=== PATIENT | female | born 1935 | race Hispanic/Latino ===

== ENCOUNTER 2020-10-20 09:21 | Inpatient (IN) | payer MEDICARE ==
[~2020-10-20] VITALS: Ht 157.5 cm; Wt 64.9 kg
[2020-10-20 10:11] LABS: BASOPHILS % 0.4 % (0.0-1.0); EOSINOPHILS # (AUTO) 0.1 (0.0-0.4); EOSINOPHILS % 1.1 % (0.0-6.0); HEMATOCRIT 42.9 % (34.2-44.1); HEMOGLOBIN 14.5 g/dL (12.0-16.0); LYMPHOCYTES # (AUTO) 2.1 (1.0-3.2); LYMPHOCYTES % 18.5 % (18.0-39.1); MEAN CORPUSCULAR HEMOGLOBIN 30.6 pg (28-32); MEAN CORPUSCULAR HGB CONC 33.8 g/dL (31-35); MEAN CORPUSCULAR VOLUME 90.5 fL (81-99); MONOCYTES # (AUTO) 0.6 (0.2-0.8); MONOCYTES % 5.4 % (4.4-11.3); NEUTROPHILS # (AUTO) 8.5 (2.1-6.9); NEUTROPHILS % 74.2 % (38.7-80.0); PLATELET COUNT 341 x10e3/uL (140-360); RED BLOOD COUNT 4.74 x10e6/uL (3.6-5.1); RED CELL DISTRIBUTION WIDTH 13.6 % (11.7-14.4)
[2020-10-20 10:24] LABS: CLARITY,URINE CLOUDY (CLEAR); KETONES,URINE 2+ (NEGATIVE); LEUKOCYTE ESTERASE ,URINE LARGE (NEGATIVE); NITRITE,URINE POSITIVE (NEGATIVE); PROTEIN,URINE DIPSTICK >=300 (NEGATIVE)
[2020-10-20 10:25] LABS: COLOR,URINE RED (YELLOW)
[2020-10-20 10:28] LABS: BACTERIA,URINE MODERATE /HPF; EPITHELIAL CELLS,URINE RARE /LPF; RBC,URINE >50 /HPF (0-5)
[2020-10-20 10:45] LABS: ALANINE AMINOTRANSFERASE 18 IU/L (0-55); ALBUMIN 4.3 g/dL (3.5-5.0); ALBUMIN/GLOBULIN RATIO 1.1 (0.8-2.0); ALKALINE PHOSPHATASE 91 IU/L (40-150); ANION GAP 16.2 mmol/L (8-16); CALCIUM 9.2 mg/dL (8.4-10.2); CARBON DIOXIDE 23 mmol/L (22-29); CHLORIDE 105 mmol/L (98-107); GLUCOSE 95 mg/dL (74-118); POTASSIUM 4.2 mmol/L (3.5-5.1); SODIUM 140 mmol/L (136-145)
[2020-10-20] MEDS ORDERED: AMPICILLIN SOD/SULBACTAM 1.5GM 50 ML IV STA (10:51)
[2020-10-20 10:57] LABS: BLOOD UREA NITROGEN 12 mg/dL (7-26); BUN/CREATININE RATIO 16 (6-25); CREATININE, SERUM 0.77 mg/dL (0.57-1.11); EST GLOMERULAR FILTRATION RATE > 60 ML/MIN (60-)
[2020-10-20] MEDS ORDERED: SODIUM CHLORIDE 0.9% 250ML 250 ML ONE (11:28)
[2020-10-20] MEDS ORDERED: IOPAMIDOL 370 MG/ML 200 ML INFUS..BTL INJ ONE (11:28)
[2020-10-20] MEDS ORDERED: PIPERACILLIN/TAZO 4.5 GM 100 ML IV STA (12:44)
[2020-10-20 15:50] VITALS: BP 165/98
[2020-10-20 16:32] VITALS: BP 165/98
[2020-10-20] MEDS ORDERED: FAMOTIDINE40 MG PO (17:45)
[2020-10-20] MEDS ORDERED: ALENDRONATE SOD35 MG PO (17:45)
[2020-10-20] MEDS ORDERED: NIFEDIAC CC60 MG PO (17:45)
[2020-10-20 17:46] VITALS: BP 165/98
[2020-10-20 19:00] VITALS: BP 139/87
[2020-10-20] MEDS: MORPHINE SULFATE INJ 4 MG/ML INJ 1ML IV PRN ×2 (19:29→23:00)
[2020-10-20 20:50] VITALS: BP 139/87
[2020-10-21] VITALS (8 sets, daily range): BP systolic 141–180; BP diastolic 66–81
[2020-10-21] MEDS: MORPHINE SULFATE INJ 4 MG/ML INJ 1ML IV PRN ×2 (04:29→19:30)
[2020-10-21 05:19] LABS: BASOPHILS % 0.6 % (0.0-1.0); EOSINOPHILS # (AUTO) 0.1 (0.0-0.4); EOSINOPHILS % 2.7 % (0.0-6.0); HEMATOCRIT 38.5 % (34.2-44.1); HEMOGLOBIN 13.1 g/dL (12.0-16.0); LYMPHOCYTES # (AUTO) 1.6 (1.0-3.2); LYMPHOCYTES % 31.3 % (18.0-39.1); MEAN CORPUSCULAR HEMOGLOBIN 30.2 pg (28-32); MEAN CORPUSCULAR VOLUME 88.7 fL (81-99); MONOCYTES # (AUTO) 0.4 (0.2-0.8); MONOCYTES % 8.1 % (4.4-11.3); NEUTROPHILS % 57.1 % (38.7-80.0); PLATELET COUNT 297 x10e3/uL (140-360); RED BLOOD COUNT 4.34 x10e6/uL (3.6-5.1); RED CELL DISTRIBUTION WIDTH 13.7 % (11.7-14.4)
[2020-10-21 05:39] LABS: ANION GAP 11.3 mmol/L (8-16); BLOOD UREA NITROGEN 10 mg/dL (7-26); BUN/CREATININE RATIO 14 (6-25); CALCIUM 8.6 mg/dL (8.4-10.2); CARBON DIOXIDE 24 mmol/L (22-29); CHLORIDE 110 mmol/L (98-107); EST GLOMERULAR FILTRATION RATE > 60 ML/MIN (60-); GLUCOSE 97 mg/dL (74-118); POTASSIUM 3.3 mmol/L (3.5-5.1); SODIUM 142 mmol/L (136-145)
[2020-10-21] MEDS ORDERED: DOCUSATE SODIUM 100 MG CAP PO PRN (07:00)
[2020-10-21] MEDS ORDERED: ACETAMINOPHEN 325 MG TAB PO PRN (07:00)
[2020-10-21] MEDS ORDERED: ZOLPIDEM TARTRATE 5 MG TAB PO PRN (07:00)
[2020-10-21] MEDS ORDERED: ONDANSETRON HCL INJ 2MG/ML 2ML 2 MG/ML VIAL IV PRN (07:00)
[2020-10-21] MEDS ORDERED: POTASSIUM CHLORIDE 20 MEQ TAB CR PO ONE (08:15)
[2020-10-21] MEDS: PANTOPRAZOLE SOD 40 MG TABEC PO SCH (10:38)
[2020-10-21] MEDS: NIFEDIPINE CR 30 MG TAB PO SCH ×3 (10:38→21:22)
[2020-10-21] MEDS ORDERED: SODIUM CHLORIDE 0.9% 250ML 250 ML ONE (10:38)
[2020-10-21] MEDS: PIPERACILLIN/TAZOBAC 3.375 GM in SODIUM CHLORIDE 0.9% 50ML 50 ML IV SCH ×3 (10:39→23:30)
[2020-10-21] MEDS ORDERED: PIPER-TAZ 3.375 GM / NS 50ML IV SCH (14:00)
[2020-10-22] VITALS (7 sets, daily range): BP systolic 106–163; BP diastolic 60–90
[2020-10-22] MEDS: MORPHINE SULFATE INJ 4 MG/ML INJ 1ML IV PRN (00:02)
[2020-10-22] MEDS: SENNOSIDES 8.6 MG TAB PO SCH ×2 (09:19→16:38)
[2020-10-22] MEDS: PANTOPRAZOLE SOD 40 MG TABEC PO SCH (09:19)
[2020-10-22] MEDS: DOCUSATE SODIUM 100 MG CAP PO SCH ×2 (09:19→16:38)
[2020-10-22] MEDS: PIPERACILLIN/TAZOBAC 3.375 GM in SODIUM CHLORIDE 0.9% 50ML 50 ML IV SCH ×2 (09:19→17:00)
[2020-10-22] MEDS: NIFEDIPINE CR 30 MG TAB PO SCH (09:19)
[2020-10-22] MEDS ORDERED: CEFUROXIME250 MG PO (18:57)
== END 2020-10-22 20:32 | disposition home or self-care (01) | DRG 760 ==
LOC: ER 09:28 → ERHOLD 12:51 → MED/SURG2 15:30
PROVIDERS: ADMIT Internal Medicine; ATTEND Internal Medicine
DX: N81.10 Cystocele, unspecified (principal); G93.41 Metabolic encephalopathy; N13.6 Pyonephrosis; N39.0 Urinary tract infection, site not specified; E87.6 Hypokalemia; K80.80 Other cholelithiasis without obstruction; K57.90 Diverticulosis of intestine, part unspecified, without perforation or abscess without bleeding; Z20.822 Contact with and (suspected) exposure to COVID-19
CPT/HCPCS: 36415; 74178; 80048; 80053; 81001; 84132; 85025; 87086; 97139; 99251; 99284; J0295; J2270; J2543; J7050; Q9967; U0002

== ENCOUNTER → 2021-01-05 | Outpatient (CLI) | payer MEDICARE ==
[~2021-01-05] MED LIST: ALENDRONATE SOD35 MG PO; CEFUROXIME250 MG PO; FAMOTIDINE40 MG PO; NIFEDIAC CC60 MG PO; REGADENOSON 0.4 MG/5 ML SYR IV ONE
== END ==
LOC: NM 11:06
PROVIDERS: ATTEND Internal Medicine
DX: Z01.818 Encounter for other preprocedural examination (principal); R07.9 Chest pain, unspecified
CPT/HCPCS: 78452; 93017; 93306; A9502; J2785